=== PATIENT | female | born 1955 | race Caucasian/White ===

== ENCOUNTER 2017-07-19 06:57 | Day surgery (SDC) | payer BC ==
--- NOTE | 2017-07-15 12:40 | HP ---
DATE OF ADMISSION: 07/19/2017 HISTORY OF PRESENT ILLNESS: This is the 2nd orthopedic outpatient admission for surgery for this 61-year-old female who is being scheduled and to be brought in for mass removal of the tip of right index finger. The patient had a previous amputation of the tip of the finger, has developed the swelling over the past year and has become painful with any type of activity or pressure. The patient was seen through orthopedic clinic and after evaluation and x-rays, the patient is now being scheduled for mass removal. Procedure has been outlined to her. She understands the procedure and has consented to it. ALLERGIES: Keflex, hydrochlorothiazide. CURRENT MEDICATIONS: The patient is currently on no medications. PAST MEDICAL HISTORY: Medically, the patient has been healthy. No history of blood pressure, diabetes problems. PAST SURGICAL HISTORY: Positive. She has had previous hand surgery 3 years ago, had no anesthesia problems. Bleeding history is negative. Blood clot history is negative. SOCIAL HISTORY: The patient is a nonsmoker and nondrinker. PHYSICAL EXAMINATION: GENERAL: Today reveals a well-developed, well-nourished, 61-year-old female, in minimal distress. HEENT: Head, eyes, ears, nose and throat normocephalic. NECK: Supple. CHEST: Clear. COR: Regular rate. ABDOMEN: Soft. : Intact. EXTREMITIES: Examination of the right index finger reveals a small firm palpable mass at the tip of the finger. Slight skin color changes, possibly a ganglion formation or an epidermal cyst. RADIOGRAPHIC STUDIES: The radiology x-ray of the right index finger shows a previous amputation of the distal tip with the base of distal phalanx left intact. No bone spur is noted. ASSESSMENT: Mass at tip of right index finger. PLAN: The patient to undergo surgical excision. ALLEY /[id number] ERIC
[~2017-07-19 06:57] MED LIST: Lactated Ringers 1,000 ML IV SCH; Lidocaine 1%/Sod Bicarbonate in NS 8.4% 1 ML Syringe IDERM PRN; Sodium Chloride 0.9% 10 ML Syringe FLUSH PRN
[2017-07-19] MEDS ORDERED: fentaNYL 100 MCG/2 ML SDV ONE (07:04)
[2017-07-19] MEDS ORDERED: Midazolam 1 MG/ML 2 ML SDV ONE (07:04)
[2017-07-19] MEDS ORDERED: Propofol 200 MG/20 ML SDV ONE ×2 (07:04→07:38)
[2017-07-19] MEDS ORDERED: Lidocaine 0.5% 50 ML SDV ONE (07:09)
[2017-07-19] MEDS ORDERED: Sodium Bicarbonate 8.4% 50 MEQ/50 ML SDV ONE (07:09)
--- NOTE | 2017-07-19 07:33 | PCM.PREANE ---
Preanesthetic Assessment - Procedure Proposed Procedure: Mass excision of right index finger - Anesthesia/Transfusion/Family Hx Anesthesia History: Prior Anesthesia Without Reaction Family History of Anesthesia Reaction: No Transfusion History: No Prior Transfusion(s) Intubation History: Unknown - Review of Systems General: No Symptoms Pulmonary: No Symptoms Cardiovascular: Other (resolved hypertension ) Gastrointestinal: No Symptoms Neurological: No Symptoms Other: Reports: None - Physical Assessment NPO Status Date: 07/18/17 NPO Status Time: 20:00 Pulse: 66 O2 Sat by Pulse Oximetry: 96 Respiratory Rate: 16 Blood Pressure: 155/79 Temperature: 37.0 C Height: 1.68 m Weight: 100.244 kg Mental Status: Alert & Oriented x3 Dentition: Reports: Dentures Thyro-Mental Finger Breadths: 3 Mouth Opening Finger Breadths: 3 ROM/Head Extension: Full Lungs: Clear to Auscultation, Normal Respiratory Effort Cardiovascular: Regular Rate, Regular Rhythm - Allergies Allergies/Adverse Reactions: Allergies Allergy/AdvReac Type Severity Reaction Status Date / Time cephalexin [Cephalexin] Allergy Rash Verified 07/18/17 15:37 hydrochlorothiazide Allergy Rash Verified 07/18/17 15:37 - Blood Blood Available: No Product(s) Available: None - Anesthesia Plan Pre-Op Medication Ordered: None - Acknowledgements Anesthesia Type Planned: MURTAZA Pt an Appropriate Candidate for the Planned Anesthesia: Yes Alternatives and Risks of Anesthesia Discussed w Pt/Guardian: Yes Pt/Guardian Understands and Agrees with Anesthesia Plan: Yes PreAnesthesia Questionnaire HEENT History: Reports: Other (See Below) Other HEENT History: has dentures, glasses Cardiovascular History: Reports: Hypertension Respiratory History: Reports: None Gastrointestinal History: Reports: None Genitourinary History: Reports: None SECOND OFFICER History: Reports: Psychiatric History: Reports: None Endocrine/Metabolic History: Reports: None Hematologic History: Reports: None Immunologic History: Reports: None Oncologic (Cancer) History: Reports: None Dermatologic History: Reports: None - Past Surgical History Head Surgeries/Procedures: Reports: None Cardiovascular Surgical History: Reports: None Respiratory Surgical History: Reports: None GI Surgical History: Reports: Colonoscopy Female Surgical History: Reports: None Male Surgical History: Reports: None Endocrine Surgical History: Reports: None Neurological Surgical History: Reports: Discectomy Musculoskeletal Surgical History: Reports: Other (See Below) Other Musculoskeletal Surgeries/Procedures:: left hand mass removal Oncologic Surgical History: Reports: None Dermatological Surgical History: Reports: None - SUBSTANCE USE Smoking Status *Q: Never Smoker Recreational Drug Use History: No - HOME MEDS Home Medications: Home Meds . [No Known Home Meds] 08/16/13 [History] - CURRENT (IN HOUSE) MEDS Current Meds: Current Medications Lactated Ringer's (Ringers, Lactated) 1,000 mls @ 125 mls/hr IV ASDIRECTED NATALIYA Stop: 07/19/17 23:00 Clindamycin Phosphate 900 mg/ (Dextrose/Water) 106 mls @ 212 mls/hr IV ONETIME ONE Stop: 07/19/17 08:29 Lidocaine/Sodium Bicarbonate (Buffered Lidocaine 1% In Ns 8.4%) 0.25 ml IDERM ONETIME PRN PRN Reason: Prior to IV Start Stop: 07/19/17 18:00 Sodium Chloride (Saline Flush) 10 ml FLUSH ASDIRECTED PRN PRN Reason: Keep Vein Open Stop: 07/19/17 18:00 Discontinued Medications Fentanyl (Sublimaze) Confirm Administered Dose 100 mcg .ROUTE .STK-MED ONE Stop: 07/19/17 07:05 Lidocaine HCl (Xylocaine-Mpf 0.5%) Confirm Administered Dose 50 ml .ROUTE .STK- MED ONE Stop: 07/19/17 07:10 Midazolam HCl (Versed 1 Mg/Ml) Confirm Administered Dose 2 mg .ROUTE .STK-MED ONE Stop: 07/19/17 07:05 Propofol (Diprivan 20 Ml) Confirm Administered Dose 200 mg .ROUTE .STK-MED ONE Stop: 07/19/17 07:05 Sodium Bicarbonate (Sodium Bicarbonate 8.4%) Confirm Administered Dose 50 meq .ROUTE .STK-MED ONE Stop: 07/19/17 07:10
[2017-07-19] MEDS ORDERED: Ondansetron 4 MG/2 ML SDV IVPUSH PRN (07:34)
[2017-07-19] MEDS ORDERED: traMADol 50 MG Tab PO PRN (07:34)
[2017-07-19] MEDS ORDERED: Clindamycin Phosphate 900 MG in Dextrose 5% in Water 100 ML IV ONE ×2 (08:00)
--- NOTE | 2017-07-19 08:52 | PCM48HPAN ---
Post Anesthesia Note - EVALUATION WITHIN 48HRS OF ANESTHETIC Vital Signs in Normal Range: Yes Patient Participated in Evaluation: Yes Respiratory Function Stable: Yes Airway Patent: Yes Cardiovascular Function Stable: Yes Hydration Status Stable: Yes Pain Control Satisfactory: Yes Nausea and Vomiting Control Satisfactory: Yes Mental Status Recovered: Yes Pulse Rate: 66 SaO2: 94 Resp Rate: 16 Temperature: 36.5 C Blood Pressure: 116/74
[2017-07-19 09:44] VITALS: BP 140/73
--- NOTE | 2017-07-19 14:28 | OR ---
DATE OF OPERATION: 07/19/2017 SURGEON: Ricky Burks MD PREOPERATIVE DIAGNOSIS: Right index finger mass distal tip. POSTOPERATIVE DIAGNOSIS: Right index finger mass distal tip with ganglion and exostosis formation. ANESTHESIA: Treg[place] block. OPERATION PERFORMED: 1. Right index finger, removal of distal ganglion. 2. Right index finger distal removal bony exostosis formation. DESCRIPTION OF PROCEDURE: The patient was taken to the operating room in supine position and placed under a Trego block anesthesia in the right upper extremity with light sedation. After adequate anesthesia, the operation proceeded with prepping and draping of the right hand by standard technique. On evaluation of the tip, the patient had undergone a previous amputation of the distal tip of the finger and had a residual base of the distal phalanx still present and with the mass formation at the tip and along the incision line of the previous surgery. The area was evaluated. It was opted to use part of the old incision area as the volar side of the mass area and this was incised and down to the base of the finger at the DIP joint where the previous amputation site was present and then superiorly and dorsally the incision was more elliptical around the mass for mass removal. A sharp dissection was carried down to the end of the middle phalanx and joint area where was found a gelatinous-type clear liquid noted which should indicate a ganglion-type formation and also the previous surgery where I left a small portion of the base of the distal phalanx also showed exostosis formation and creating irritation for the ganglion formation. It was opted to go ahead and sharply excise that portion of the bone that was left after previous surgery to help re-establish a soft tip for the patient. The ganglion was then excised entirely with removal of the ganglion plus the bony tissue. The area was then thoroughly irrigated, inspected, and the operation proceeded and then closure of the skin with a 5-0 Prolene interrupted. She was then placed in standard dressings and a splint. She tolerated the procedure well, left the operating room in stable condition to room for recovery. ESTIMATED BLOOD LOSS: MMODAL /[id number]
== END 2017-07-19 09:30 | disposition home or self-care (01) ==
LOC: JD.SDS 06:57
PROVIDERS: ATTEND Specialist
DX: M71.341 Other bursal cyst, right hand (principal); M89.9 Disorder of bone, unspecified; I10 Essential (primary) hypertension; Z88.1 Allergy status to other antibiotic agents; Z88.8 Allergy status to other drugs, medicaments and biological substances
CPT/HCPCS: 26160; 26210; A9270; J2250; J3010; J7060; J7120; 01810; J2704

== ENCOUNTER 2020-03-20 09:57 | Day surgery (SDC) | payer MEDICARE, BC ==
[2020-03-20] MEDS ORDERED: Bupivacaine 0.25% 10 ML SDV ONE (10:43)
[2020-03-20] MEDS ORDERED: Lidocaine 1% 30 ML SDV ONE (10:44)
[2020-03-20] MEDS ORDERED: Clindamycin Phosphate in D5W 900 MG in Premix Bag 1 BAG IV ONE ×2 (10:52)
[2020-03-20] MEDS ORDERED: Propofol 200 MG/20 ML SDV ONE (11:39)
[2020-03-20] MEDS ORDERED: Lidocaine 1% 4 ML ONE (11:39)
[2020-03-20] MEDS ORDERED: fentaNYL 100 MCG/2 ML SDV ONE (11:40)
[2020-03-20] MEDS ORDERED: Midazolam 1 MG/ML 2 ML SDV ONE (11:43)
[2020-03-20] MEDS ORDERED: Ondansetron 4 MG/2 ML SDV ONE (12:02)
--- NOTE | 2020-03-20 12:20 | PCM.PREANE ---
Preanesthetic Assessment - Procedure Proposed Procedure: Rt index mass resection - Anesthesia/Transfusion/Family Hx Anesthesia History: Prior Anesthesia Without Reaction Transfusion History: No Prior Transfusion(s) Intubation History: Unknown - Review of Systems General: No Symptoms Pulmonary: No Symptoms Cardiovascular: No Symptoms Gastrointestinal: No Symptoms Neurological: No Symptoms Other: Reports: None - Physical Assessment NPO Status Date: 03/19/20 NPO Status Time: 22:00 Vital Signs: Last Vital Signs Temp 99.7 F 03/20/20 09:55 Pulse 70 03/20/20 09:55 Resp 16 03/20/20 09:55 BP 159/68 H 03/20/20 09:55 Pulse Ox 99 03/20/20 09:55 Height: 1.68 m Weight: 95.254 kg ASA Class: 2 Mental Status: Alert & Oriented x3 Airway Class: Mallampati = 2 Dentition: Reports: Dentures (upper) Thyro-Mental Finger Breadths: 3 Mouth Opening Finger Breadths: 3 ROM/Head Extension: Full Lungs: Clear to Auscultation, Normal Respiratory Effort Cardiovascular: Regular Rate, Regular Rhythm - Lab Values: Laboratory Last Values MRSA (PCR) Negative 03/07/20 14:34 - Allergies Allergies/Adverse Reactions: Allergies Allergy/AdvReac Type Severity Reaction Status Date / Time cephalexin [Cephalexin] Allergy Rash Verified 03/19/20 14:32 hydrochlorothiazide Allergy Rash Verified 03/20/20 10:46 - Acknowledgements Anesthesia Type Planned: MAC Pt an Appropriate Candidate for the Planned Anesthesia: Yes Alternatives and Risks of Anesthesia Discussed w Pt/Guardian: Yes Pt/Guardian Understands and Agrees with Anesthesia Plan: Yes PreAnesthesia Questionnaire HEENT History: Reports: Other (See Below) Other HEENT History: has dentures, glasses Cardiovascular History: Reports: Hypertension Respiratory History: Reports: None Gastrointestinal History: Reports: Other (See Below) Other Gastrointestinal History: GASTRIC ULCER Genitourinary History: Reports: None 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: , Other (See Below) Other OB/BYN History: CERVICAL DYSPLASIA, BREAST LUMPECTOMY, LEEP Neurological History: Reports: None Psychiatric History: Reports: None Endocrine/Metabolic History: Reports: None Hematologic History: Reports: None Immunologic History: Reports: None Oncologic (Cancer) History: Reports: Basal Cell Carcinoma Dermatologic History: Reports: None - Infectious Disease History Infectious Disease History: Reports: None - Past Surgical History Head Surgeries/Procedures: Reports: None Cardiovascular Surgical History: Reports: None Respiratory Surgical History: Reports: None GI Surgical History: Reports: Colonoscopy Female Surgical History: Reports: None Male Surgical History: Reports: None Endocrine Surgical History: Reports: None Neurological Surgical History: Reports: Discectomy Musculoskeletal Surgical History: Reports: Other (See Below) Other Musculoskeletal Surgeries/Procedures:: left hand mass removal, ELBOW AND WRIST SURGERY Oncologic Surgical History: Reports: None Dermatological Surgical History: Reports: None - SUBSTANCE USE Tobacco Use Status *Q: Never Tobacco User - HOME MEDS Home Medications: Home Meds Ascorbic Acid [Vitamin C] 1,000 mg PO DAILY 03/19/20 [History] Calcium Carbonate [Calcium] 1,200 mg PO DAILY 03/19/20 [History] Cholecalciferol (Vitamin D3) [Vitamin D3] 10 mcg PO DAILY 03/19/20 [History] Fish Oil/[place]-3 Fatty Acids [Fish Oil 1,000 MG] 1 gm PO DAILY 03/19/20 [History] Zinc 50 mg PO DAILY 03/19/20 [History] lisinopriL [Prinivil] 20 mg PO DAILY 03/19/20 [History] Acetaminophen/HYDROcodone [[place] 325-5 MG] 1 - 2 tab PO Q6H PRN #10 tablet 03/20/20 [Rx] - CURRENT (IN HOUSE) MEDS Current Meds: Current Medications Lactated Ringer's (Ringers, Lactated) 1,000 mls @ 125 mls/hr IV ASDIRECTED NATALIAY Stop: 03/20/20 23:00 Last Admin: 03/20/20 10:41 Dose: 125 mls/hr Documented by: Lidocaine/Sodium Bicarbonate (Buffered Lidocaine 1% In Ns 8.4%) 0.25 ml IDERM ONETIME PRN PRN Reason: Prior to IV Start Stop: 03/20/20 18:00 Sodium Chloride (Saline Flush) 10 ml FLUSH ASDIRECTED PRN PRN Reason: Keep Vein Open Stop: 03/20/20 18:00 Discontinued Medications Bupivacaine HCl (Sensorcaine-Mpf 0.25%) Confirm Administered Dose 20 ml .ROUTE .STK-MED ONE Stop: 03/20/20 10:44 Fentanyl (Sublimaze) Confirm Administered Dose 100 mcg .ROUTE .STK-MED ONE Stop: 03/20/20 11:41 Clindamycin Phosphate 900 mg/ (Premix) 50 mls @ 100 mls/hr IV ONETIME ONE Stop: 03/20/20 11:21 Last Admin: 03/20/20 11:00 Dose: 100 mls/hr Documented by: Lidocaine HCl (Xylocaine-Mpf 1%) Confirm Administered Dose 4 mls @ as directed .ROUTE .STK-MED ONE Stop: 03/20/20 11:40 Lidocaine HCl (Xylocaine-Mpf 1%) Confirm Administered Dose 30 ml .ROUTE .STK-MED ONE Stop: 03/20/20 10:45 Midazolam HCl (Versed 1 Mg/Ml) Confirm Administered Dose 2 mg .ROUTE .STK-MED ONE Stop: 03/20/20 11:44 Propofol (Diprivan 20 Ml) Confirm Administered Dose 400 mg .ROUTE .STK-MED ONE Stop: 03/20/20 11:40
--- NOTE | 2020-03-20 12:27 | PCM48HPAN ---
Post Anesthesia Note - EVALUATION WITHIN 48HRS OF ANESTHETIC Vital Signs in Normal Range: Yes Patient Participated in Evaluation: Yes Respiratory Function Stable: Yes Airway Patent: Yes Cardiovascular Function Stable: Yes Hydration Status Stable: Yes Pain Control Satisfactory: Yes Nausea and Vomiting Control Satisfactory: Yes Mental Status Recovered: Yes Vital Signs: Last Vital Signs Temp 97.7 F 03/20/20 12:15 Pulse 70 03/20/20 12:18 Resp 14 03/20/20 12:18 BP 124/47 L 03/20/20 12:18 Pulse Ox 95 03/20/20 12:18
[2020-03-20 14:30] VITALS: BP 138/65; PULSE 65
--- NOTE | 2020-03-30 18:13 | PCM.OPNOTE ---
- General Post-Op/Procedure Note Date of Surgery/Procedure: 03/20/20 Operative Procedure(s): right index finger mass excision Pre Op Diagnosis: right index finger mass Post-Op Diagnosis: Same Anesthesia Technique: Local, MAC Primary Surgeon: Tristan Mcnamara Anesthesia Provider: Dewayne Lopez Housekeeper Cleaning Cooking: Pilar Aguilar EBL in mLs: 5 Complications: None Condition: Good
--- NOTE | 2020-03-30 18:35 | OR ---
DATE OF OPERATION: 03/20/2020 SURGEON: Tristan Mcnamara MD OPERATION PERFORMED: Right index finger mass excision. PREOPERATIVE DIAGNOSIS: Right index finger mass. POSTOPERATIVE DIAGNOSIS: Right index finger mass. ANESTHESIA: Local MAC. ANESTHESIA PROVIDER: Martha Valdez. FRAUD INVESTIGATOR: Pilar Aguilar PA-C ESTIMATED BLOOD LOSS: Less than 5 mL. COMPLICATIONS: None. CONDITION: Stable. DESCRIPTION OF PROCEDURE: The patient was identified in the preoperative holding area. Proper site was marked, identified by the surgeon. The patient was takes back to the operating theater, where after adequate anesthesia, the patient's right upper extremity was sterilely prepped and draped in the usual sterile fashion. OR time-out was performed. The patient received clindamycin. At this time, right upper extremity index finger had a digital block performed with 1% lidocaine without epinephrine and 0.25% Marcaine without epinephrine. This was done as digital block as well as flexor tendon block. I was able to draw out to ellipse the mass at the very tip of the index finger near the previous amputation site closure. A 15 blade was used for skin incision and a [place] blade was used to take down into the subcutaneous tissues. The subcutaneous mass was found to be completely resected. This was then sent for pathology. Adequate saline was then irrigated through the wound. A 4-0 nylon suture was used for closure of the skin and had good closure with no signs of dog-ear. A sterile soft dressing was then applied. The patient tolerated the procedure well and sent to PACU in stable condition. MMODAL /[id number]
== END 2020-03-20 12:52 | disposition home or self-care (01) ==
LOC: JD.SDS 09:57
PROVIDERS: ATTEND Orthopaedic Surgery
DX: L72.0 Epidermal cyst (principal); I10 Essential (primary) hypertension; Z79.899 Other long term (current) drug therapy; Z88.8 Allergy status to other drugs, medicaments and biological substances; Z98.890 Other specified postprocedural states
CPT/HCPCS: 11421; 87641; 88304; J2001; J2250; J2405; J2704; J3010; J3490; J7120; 00400

== ENCOUNTER 2023-01-26 07:52 | Day surgery (SDC) | payer MEDICARE, BC ==
[~2023-01-26 07:52] MED LIST changes: -Lactated Ringers 1,000 ML IV SCH; -Lidocaine 1%/Sod Bicarbonate in NS 8.4% 1 ML Syringe IDERM PRN; +Morphine 8 MG, EPINEPHrine 0.3 MG, Ketorolac 30 MG, Sodium Chloride 0.9% 7.9 ML PRN; -Sodium Chloride 0.9% 10 ML Syringe FLUSH PRN
[2023-01-26] MEDS ORDERED: VANCOmycin 1.25 GM/250 ML 1.25 GM in Premix Bag 1 BAG IV ONE (08:45)
[2023-01-26] MEDS ORDERED: Vancomycin 1 GM SDV ONE (08:57)
[2023-01-26] MEDS ORDERED: Tranexamic Acid 1,000 MG/10 ML Vial ONE (08:57)
[2023-01-26] MEDS ORDERED: Sodium Chloride 0.9% 10 ML Syringe FLUSH PRN (08:58)
[2023-01-26] MEDS ORDERED: Lactated Ringers 1,000 ML IV SCH (09:00)
[2023-01-26] MEDS ORDERED: Sodium Chloride 0.9% 10 ML Syringe FLUSH SCH (09:00)
[2023-01-26] MEDS ORDERED: fentaNYL 100 MCG/2 ML SDV ONE (09:47)
[2023-01-26] MEDS ORDERED: Midazolam 1 MG/ML 2 ML SDV ONE (09:47)
[2023-01-26] MEDS ORDERED: Propofol 200 MG/20 ML SDV ONE (09:47)
[2023-01-26] MEDS ORDERED: Lidocaine 2% 5 ML SDV ONE (09:49)
[2023-01-26] MEDS ORDERED: fentaNYL 100 MCG/2 ML SDV IVPUSH PRN (10:40)
[2023-01-26] MEDS ORDERED: Ondansetron 4 MG/2 ML SDV IVPUSH PRN (10:40)
[2023-01-26] MEDS ORDERED: HYDROmorphone 0.5 MG/0.5 ML Syringe IVPUSH PRN (10:40)
[2023-01-26] MEDS ORDERED: ePHEDrine 50 MG/ML SDV ONE (11:10)
[2023-01-26] MEDS ORDERED: Acetaminophen/HYDROcodone 325-5 MG Tab PO ONE (13:26)
[2023-01-26 13:28] VITALS: BP 141/71; PULSE 75
[2023-01-27] MEDS ORDERED: Morphine 8 MG, EPINEPHrine 0.3 MG, Ketorolac 30 MG, Sodium Chloride 0.9% 7.9 ML PRN ×4 (06:00)
== END 2023-01-26 14:55 | disposition home or self-care (01) ==
LOC: JD.SDS 07:52
PROVIDERS: ATTEND Orthopaedic Surgery
DX: M16.12 Unilateral primary osteoarthritis, left hip (principal); I10 Essential (primary) hypertension; Z79.82 Long term (current) use of aspirin; Z79.899 Other long term (current) drug therapy; Z88.8 Allergy status to other drugs, medicaments and biological substances
CPT/HCPCS: 0055T; 27130; 36415; 73501; 86850; 86900; 86901; 97116; 97161; A9270; C1713; C1776; J0171; J1885; J2250; J2270; J2704; J3010; J3370; J7030; J7120; 01214; J3490